=== PATIENT | female | born 1950 | race Caucasian/White ===

== ENCOUNTER 2019-01-18 09:11 | Day surgery (SDC) | payer MEDICARE, BC ==
[2019-01-16 09:18] LABS: HEMATOCRIT 38.3 % (36.0-48.0); HEMOGLOBIN 12.2 g/dL (12-16); MCH 28.1 pg (26.0-34.0); MCHC 31.9 g/dL (31.0-37.0); MCV 88.2 fL (80.0-100.0); MEAN PLATELET VOLUME 9.9 fL (7.4-10.4); RBC 4.34 10x6/uL (4.00-5.40); WBC 4.2 10x3/uL (4.8-10.8)
[~2019-01-18] VITALS: Ht 160 cm; Wt 72.6 kg
[~2019-01-18 09:11] MED LIST: CALCIUM 500 +1 EAC3 PO; CLARITIN 10 MG10 MG PO; COZAAR50 MG; SYNTHROID112 MCG PO; VITAMIN E1000 UNI1 PO; ZOCOR20 MG PO
[2019-01-18 09:42] VITALS: BP 139/81; Ht 160 cm; Wt 72.6 kg
--- NOTE | 2019-01-18 12:42 | NUR ---
TEE FRAME ON BED FOR POSITIONING
[2019-01-18] MEDS ORDERED: HYDROCODON-ACE1 EA10 PO (13:51)
--- NOTE | 2019-01-18 17:59 | NUR ---
1605-DISCHARGE CRITERIA MET. ERMOVED IV WITH CATH INTACT,DISPOSED INTO SHARPS, COVERED SITE WITH BANDAID. POST OPERATIVE INSTRUCTIONS REVIEWED. VERBALIZED UNDERSTANDING. ESCORTED OUT VIA W/C WITH SPOUSE AWAITING TO DRIVE HOME
--- NOTE | 2019-02-16 09:47 | OP ---
PATIENT NAME: LEO LA MEDICAL RECORD: [id number] :48 LOCATION:D.OPS ADMISSION DATE: SURGEON: ALEXANDRIA AUSTIN MD DATE OF OPERATION: 01/18/2019 PREOPERATIVE DIAGNOSES: 1. Left lumbar spinal stenosis L4-L5 with foraminal stenosis. 2. Left L5 radiculopathy secondary to lumbar spinal stenosis. POSTOPERATIVE DIAGNOSES: 1. Left lumbar spinal stenosis L4-L5 with foraminal stenosis. 2. Left L5 radiculopathy secondary to lumbar spinal stenosis. PROCEDURE: Lumbar laminectomy, medial facetectomy, and foraminotomy L4-L5 on the left. SURGEON: Alexandria Austin MD DESCRIPTION AND TECHNIQUE: After induction of general endotracheal anesthesia, the patient was rolled prone on the Tom frame. Lumbar spine was prepped and draped in usual sterile fashion. Fluoroscopic x-ray and spinal needle localized the L4-L5 interspace on the left side. After infiltration of 1:100,000 epinephrine with 1% lidocaine, a stab incision was created with a #11 blade. Series of dilators were used to advance a METRx retractor at the L4-L5 interspace on the left side. Level was confirmed with fluoroscopic x-ray. A microscope and Midas Gael drill were used to perform a laminectomy, medial facetectomy, and foraminotomy at L4-L5 on the left side. Further decompression took place with a #3 Cloward rongeur within the foramen and the lateral recesses of the spinal canal. Following this, the L5 nerve root was decompressed well. Meticulous hemostasis was maintained throughout the wound. Wound was irrigated with copious amounts of Ancef irrigant solution. The fascia was closed with 2-0 Vicryl suture. Subdermal layer was closed with 3-0 Vicryl sutures. The skin was closed with manuel. A sterile dressing was applied to the wound. The patient was awakened in good condition and taken to recovery. All counts were reported as correct. Estimated blood loss was minimal. TRANSINT:[id number] Voice Confirmation ID: [id number] DOCUMENT ID: [id number] ALEXANDRIA AUSTIN MD at 0947 CC: [id number] DICTATION DATE: 01/31/19 1627 LYRIC WRITER: 01/31/19 1645 [facility] 01/18/19 [facility] [address] [place] [address]
== END 2019-01-18 16:05 | disposition home or self-care (01) ==
LOC: D.OPS 09:11 → D.PAN 11:30 → D.OPS 12:00
PROVIDERS: Anesthesiology; ATTEND Neurological Surgery
DX: M48.061 Spinal stenosis, lumbar region without neurogenic claudication (principal); M54.16 Radiculopathy, lumbar region